=== PATIENT | female | born 1995 | race Caucasian/White ===

== ENCOUNTER 2021-10-28 03:11 | Emergency (ER) | payer OTHER ==
[~2021-10-28] VITALS: Ht 167.6 cm; Wt 70.8 kg
[2021-10-28] MEDS ORDERED: HYDROMORPHONE 1 MG/1 ML DISP.SYRIN ONE (03:59)
[2021-10-28] MEDS ORDERED: ONDANSETRON 4 MG/2 ML VIAL ONE (03:59)
[2021-10-28] MEDS ORDERED: HYDROMORPHONE 1 MG/1 ML DISP.SYRIN IV ONE (04:00)
[2021-10-28] MEDS ORDERED: IV NORMAL SALINE 1000 ML BAG IV ONE (04:00)
[2021-10-28] MEDS ORDERED: ONDANSETRON 4 MG/2 ML VIAL IV ONE (04:00)
[2021-10-28 04:22] LABS: MEAN CORPUSCULAR HEMOGLOBIN 25.3 uug (24.7-32.8); MEAN CORPUSCULAR VOLUME 75.8 fL (75.5-95.3); PLATELET COUNT (AUTO) 277 K/uL (179-408)
[2021-10-28 04:27] LABS: *BILIRUBIN,URIN NEGATIVE (NEGATIVE); *BLOOD, URINE NEGATIVE (NEGATIVE); *CLARITY,URINE CLEAR (CLEAR); *COLOR,URINE YELLOW (YELLOW); *KETONES,URINE NEGATIVE (NEGATIVE); *UROBILINOGEN,URINE 0.2 E.U./dl (NORMAL); LEUKOCYTE ESTERASE ,URINE NEGATIVE (NEGATIVE); NITRITE, URINE NEGATIVE (NEGATIVE); UGLUCOSE NEGATIVE (NEGATIVE)
[2021-10-28 04:36] LABS: ALANINE AMINOTRANSFERASE 23 U/L (14-59); ALKALINE PHOSPHATASE 80 U/L (50-136); ASPARTATE AMINOTRANSFERASE 12 U/L (15-37); BILIRUBIN,DIRECT 0.1 mg/dL (0.0-0.2); BILIRUBIN,TOTAL 0.2 mg/dL (0.2-1.0); CARBON DIOXIDE 27 mmol/L (21-32); CHLORIDE 96 mmol/L (98-107); CREATININE 0.7 mg/dL (0.6-1.3); GLUCOSE 79 mg/dL (74-106); POTASSIUM 3.5 mmol/L (3.5-5.1); TOTAL PROTEIN, SERUM 8.7 g/dL (6.4-8.2); UREA NITROGEN, BLOOD 7 mg/dL (7-18)
[2021-10-28] MEDS ORDERED: OXYC-128 PO (04:59)
--- NOTE | 2021-10-28 05:17 | NUR ---
IV removed. Catheter intact and site benign. Pressure and 4x4 gauze applied to site. No bleeding noted.
[2021-10-28 05:20] VITALS: BP 118/69
--- NOTE | 2021-10-28 05:20 | NUR ---
Patient discharged to home in stable condition. Written and verbal after care instructions given. Patient verbalizes understanding of instructions. Stressed follow up or return to ER for worsening s/s.
[2021-10-28 07:18] LABS: BAND % (MANUAL) 2 % (0-10); EOSINOPHILS % (MANUAL) 1 % (0-8); LYMPHOCYTES % (MANUAL) 40 % (20-40); MONOCYTES % (MANUAL) 19 % (2-10); NEUTROPHILS % (MANUAL) 38 % (42-75)
== END 2021-10-28 05:20 | disposition home or self-care (01) ==
LOC: ER 03:29
DX: U07.1 COVID-19 (principal); R51.9 Headache, unspecified; M79.10 Myalgia, unspecified site; K08.409 Partial loss of teeth, unspecified cause, unspecified class
CPT/HCPCS: 99285; 96374; 71045; 96361; 96375; 87426; 80076; 80048; 81003; 83735; 85025; 84145; 85730; 87040 ×2; 87086; 84484; 36415; 93005; 83605; 85007; J2405; J1170; J7040; 70030-TC; A4663

== ENCOUNTER 2023-02-15 11:38 | Emergency (ER) | payer OTHER ==
[~2023-02-15 11:38] MED LIST: OXYC-128 PO
== END 2023-02-15 12:01 | disposition left against medical advice (07) ==
LOC: ER 11:41
DX: Z53.21 Procedure and treatment not carried out due to patient leaving prior to being seen by health care provider (principal)

== ENCOUNTER 2024-12-16 20:20 | Emergency (ER) | payer OTHER ==
[~2024-12-16] VITALS: Ht 167.6 cm; Wt 103.0 kg
[2024-12-16 20:30] VITALS: BP 117/73
[2024-12-16] MEDS ORDERED: GUAI5SYR4 PO (21:54)
[2024-12-16 22:13] VITALS: BP 115/75; O2SAT 96
== END 2024-12-16 22:15 | disposition home or self-care (01) ==
LOC: ER 20:25
DX: J40 Bronchitis, not specified as acute or chronic (principal); F17.290 Nicotine dependence, other tobacco product, uncomplicated; R05.9 Cough, unspecified; J02.9 Acute pharyngitis, unspecified; J34.89 Other specified disorders of nose and nasal sinuses; R07.9 Chest pain, unspecified; M25.50 Pain in unspecified joint; M79.10 Myalgia, unspecified site; Z20.822 Contact with and (suspected) exposure to COVID-19
CPT/HCPCS: 71045; A4606; A4663